=== PATIENT | male | born 1960 | race Caucasian/White ===

== ENCOUNTER 2017-03-20 11:30 | Inpatient (IN) | payer OTHER ==
[2017-03-20 11:51] VITALS: BMI 25.2
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
[2017-03-20] MEDS ORDERED: guaiFENesin/D-METHORPHAN HB 10 ML UNIT-DOSE CUPS PO PRN (16:34)
[2017-03-20] MEDS ORDERED: MAGNESIUM CITRATE 300 ML BOTTLE PO PRN (16:34)
[2017-03-20] MEDS ORDERED: LOPERAMIDE HCL 2 MG CAPSULE PO PRN (16:34)
[2017-03-20] MEDS ORDERED: hydrOXYzine PAMOATE 50 MG CAPSULE (FP) PO PRN (16:34)
[2017-03-20] MEDS ORDERED: MENTHOL/PHENOL 1 EACH UD MM PRN (16:34)
[2017-03-20] MEDS ORDERED: MAGNESIUM HYDROX 2400MG/30ML ORAL SUSPENSION 30 ML CUP PO PRN (16:34)
[2017-03-20] MEDS ORDERED: NICOTINE POLACRILEX 2 MG GUM BC PRN (16:34)
[2017-03-20] MEDS ORDERED: MAG HYDROX/AL HYDROX/SIMETH 30 ML UNIT-DOSE CUP PO PRN (16:34)
[2017-03-20] MEDS ORDERED: P-EPHED 60MG/TRIPROLIDI 2.5MG TABLET PO PRN (16:34)
[2017-03-20] MEDS ORDERED: diphenhydrAMINE HCL 50 MG CAPSULE PO PRN (16:34)
[2017-03-20] MEDS ORDERED: ACETAMINOPHEN 325 MG TABLET (FP) PO PRN (16:34)
[2017-03-20] MEDS ORDERED: IBUPROFEN 400 MG TABLET (FP) PO PRN (16:34)
[2017-03-20] MEDS ORDERED: ALBUTEROL SO4 6.7 GM HFA INHALER IH PRN (16:38)
[2017-03-20] MEDS ORDERED: METHADONE HCL 10 MG TABLET (FOR DETOX USE ONLY) PO ONE ×2 (17:00→23:00)
[2017-03-20] MEDS: diazePAM 5 MG TABLET PO PRN (17:18)
[2017-03-20] MEDS: NICOTINE 21 MG/24 HOURS TOPICAL PATCH TD SCH (17:19)
[2017-03-20 20:06] LABS: URINE APPEARANCE CLEAR; URINE BILIRUBIN NEGATIVE (NEGATIVE); URINE BLOOD NEGATIVE (NEGATIVE); URINE COLOR DKYELLOW; URINE GLUCOSE (UA) NEGATIVE (NEGATIVE); URINE KETONE NEGATIVE (NEGATIVE); URINE LEUK ESTERASE NEGATIVE (NEGATIVE); URINE NITRITE NEGATIVE (NEGATIVE); URINE PROTEIN NEGATIVE (NEGATIVE); URINE UROBILINOGEN NEGATIVE E.U./dl (0.2-1.0)
[2017-03-20 21:49] VITALS: BP 113/77; PULSE 85
[2017-03-20] MEDS ORDERED: THIAMINE HCL 100 MG TABLET (FP) PO SCH (22:00)
[2017-03-21] MEDS: diazePAM 5 MG TABLET PO PRN (05:39)
[2017-03-21 06:31] VITALS: TEMP 97.3
[2017-03-21] MEDS ORDERED: METHADONE HCL 10 MG TABLET (FOR DETOX USE ONLY) PO ONE (10:00)
[2017-03-21] MEDS ORDERED: PRENATAL VITAMINS W/ FOLIC ACID TABLET (FP) PO SCH (10:00)
[2017-03-21] MEDS: NICOTINE 21 MG/24 HOURS TOPICAL PATCH TD SCH (10:56)
--- NOTE | 2017-03-21 11:27 | EKG ---
Test Reason : Blood Pressure : / mmHG Vent. Rate : 075 BPM Atrial Rate : 075 BPM P-R Int : 162 ms QRS Dur : 090 ms QT Int : 396 ms P-R-T Axes : 056 055 043 degrees QTc Int : 442 ms NORMAL SINUS RHYTHM NO PREVIOUS ECGS AVAILABLE Confirmed by JUAN SALINAS MD ([id number]) on 03/21/2017 11:26:44 AM Referred By: Confirmed By:JUAN SALINAS MD
[2017-03-21 11:32] LABS: MCH 30.2 pg (25.7-33.7); MCHC 33.6 g/dl (32.0-35.9); MEAN CELL VOLUME 89.9 fl (80-96); MEAN PLT VOLUME 9.5 fl (7.5-11.1); PLATELET COUNT 241 K/MM3 (134-434); RDW 13.9 % (11.9-15.9); WHITE BLOOD COUNT 6.7 K/mm3 (4.0-10.0)
--- NOTE | 2017-03-21 11:39 | PN ---
BHS COWS - Scale Resting Pulse: 1= [place] 81-100 Sweatin= Chills/Flushing Restless Observation: 1= Difficult to Sit Still Pupil Size: 1= Pupils >than Normal Bone or Joint Aches: 1= Mild Discomfort Runny Nose/ Eye Tearin= Nasal Congestion GI Upset > 30mins: 2= Nausea/Diarrhea Tremor Observation of Outstretched Hands: 2= Slight Tremor Visible Yawning Observation: 1= 1-2x During Session Anxiety or Irritability: 2=Irritable/Anxious Goose Flesh Skin: 3=Piloerection COWS Score: 16 BHS Progress Note (SOAP) Subjective: nausea, sweats, interrupted sleep, anxiety, tremors Objective: 03/21/17 11:38 Vital Signs - 24 hr 03/20/17 03/20/17 03/20/17 11:49 18:46 21:48 Temperature 96.3 F L 97.0 F L 97.8 F Pulse Rate 83 87 85 Respiratory 18 18 18 Rate Blood Pressure 130/87 116/79 113/77 03/21/17 03/21/17 00:30 06:31 Temperature 97.3 F L Pulse Rate Respiratory 20 Rate Blood Pressure Laboratory Tests 03/20/17 03/21/17 19:30 06:00 WBC 6.7 D RBC 4.82 Hgb 14.5 Hct 43.3 MCV 89.9 MCHC 33.6 RDW 13.9 D Plt Count 241 MPV 9.5 Urine Color Dkyellow Urine Appearance Clear Urine pH 6.0 Ur Specific [place] 1.025 Urine Protein Negative Urine Glucose (UA) Negative Urine Ketones Negative Urine Blood Negative Urine Nitrite Negative Urine Bilirubin Negative Urine Urobilinogen Negative Ur Leukocyte Esterase Negative labs still pending Assessment: 03/21/17 11:38 withdrawal sx Plan: cont detox, fluids, encourage ambulation, check labs when available
[2017-03-21 11:44] LABS: ALK PHOS 71 U/L (45-117); ANION GAP 8 (8-16); BILIRUBIN,TOTAL 0.6 mg/dL (0.2-1.0); CALCIUM 9.4 mg/dL (8.5-10.1); CO2 30 mmol/L (21-32); COCKROFT - GAULT 123.99; CREATININE 0.7 mg/dL (0.7-1.3); GLUCOSE,RANDOM 123 mg/dL (74-106); SGOT/AST 30 U/L (15-37); SGPT/ALT 44 U/L (12-78); TOT PROT 7.1 g/dl (6.4-8.2)
[2017-03-21 11:50] LABS: SICKLE CELL SCREEN NEGATIVE (NEGATIVE)
[2017-03-21 12:05] LABS: HIV 1 & 2 AB NEGATIVE; HIV 1 AGp24 NEGATIVE
--- NOTE | 2017-03-21 14:24 | PN ---
BHS Progress Note Note: Patient refusing methadone signing out ama, risks of not completing inpatient detoxification discussed with patient, nurse informed
--- NOTE | 2017-03-21 14:27 | DS ---
[facility] Detox Discharge Summary Admission Date: 03/20/17 Discharge Date: 03/21/17 - History Present History: Alcohol Dependence, Cocaine Dependence, Opioid Dependence Pertinent Past History: wt loss, Hep c, anxiety, depression, insomnia, nicotine dependence - Physical Exam Results Vital Signs: Vital Signs Temperature 97.3 F L 03/21/17 06:31 Pulse Rate 85 03/20/17 21:48 Respiratory Rate 20 03/21/17 00:30 Blood Pressure 113/77 03/20/17 21:48 O2 Sat by Pulse Oximetry (%) Pertinent Admission Physical Exam Findings: withdrawal sx - Treatment Hospital Course: Detox Protocol Followed Patient has Accepted a Rehab Referral to: no - Medication Discharge Medications: Ambulatory Orders Fluoxetine HCl [Prozac -] 40 mg PO DAILY #30 capsule 02/15/16 Albuterol Sulfate Inhaler - [Ventolin HFA Inhaler -] 2 inh IH Q4H PRN 04/23/16 Budesonide/Formeterol Fumarate [SYMBICORT 160/4.5mcg -] 1 inh PO BID 04/23/16 - Diagnosis (1) Opioid dependence with withdrawal Current Visit: Yes Status: Chronic (2) Weight decreased Current Visit: Yes Status: Acute (3) Asthma Current Visit: Yes Status: Chronic Qualifiers: Asthma severity: mild intermittent Asthma complication type: uncomplicated Qualified Code(s): J45.20 - Mild intermittent asthma, uncomplicated (4) Hep C w/o coma, chronic Current Visit: Yes Status: Chronic (5) Nicotine dependence Current Visit: Yes Status: Chronic Qualifiers: Nicotine product type: cigarettes Substance use status: uncomplicated Qualified Code(s): F17.210 - Nicotine dependence, cigarettes, uncomplicated (6) Alcohol dependence Current Visit: Yes Status: Chronic Qualifiers: Substance use status: in withdrawal (7) Cocaine dependence Current Visit: No Status: Acute Qualifiers: Substance use status: uncomplicated Qualified Code(s): F14.20 - Cocaine dependence, uncomplicated (8) Drug-induced mood disorder Current Visit: No Status: Acute (9) Syncope Current Visit: No Status: Resolved - AMA Did Patient Leave Against Medical Advice: Yes
[2017-03-22] MEDS ORDERED: METHADONE HCL 5 MG TABLET (FOR DETOX USE ONLY) PO ONE (10:00)
[2017-03-23] MEDS ORDERED: METHADONE HCL 5 MG TABLET (FOR DETOX USE ONLY) PO ONE (10:00)
[2017-03-24] MEDS ORDERED: METHADONE HCL 10 MG TABLET (FOR DETOX USE ONLY) PO ONE (10:00)
[2017-03-25] MEDS ORDERED: METHADONE HCL 5 MG TABLET (FOR DETOX USE ONLY) PO ONE (06:00)
== END 2017-03-21 15:54 | disposition left against medical advice (07) | DRG 770 ==
LOC: YASAS 11:30 → Y3N 14:49
PROVIDERS: ADMIT Internal Medicine; ATTEND Internal Medicine
PROC: HZ2ZZZZ Detoxification Services for Substance Abuse Treatment (ICD-10-PCS; principal; 2017-03-21)
DX: F11.23 Opioid dependence with withdrawal (principal); F10.230 Alcohol dependence with withdrawal, uncomplicated; F17.210 Nicotine dependence, cigarettes, uncomplicated; F19.24 Other psychoactive substance dependence with psychoactive substance-induced mood disorder; B18.2 Chronic viral hepatitis C; R55 Syncope and collapse; R63.4 Abnormal weight loss; Z68.24 Body mass index [BMI] 24.0-24.9, adult; Z59.0 Homelessness
CPT/HCPCS: 36415; 80053; 81003; 85027; 85660; 86593; 86780; 87389; 93005; 93010

== ENCOUNTER 2020-07-31 14:53 | Inpatient (IN) | payer OTHER ==
--- NOTE | 2020-07-31 15:27 | BHS.RME ---
Substance Use & Tx History - Substance Use History Heroin Substance amount: 14 bags Frequency of use: Daily Substance route: Inhalation (ex: sniffing or snorting), Injection (ex: intravenous or skin popping) Date of Last Use: 07/30/20 Nicotine Substance amount: one half pack Frequency of use: Daily Substance route: Smoking Date of Last Use: 07/31/20 - Last Treatment Date of last treatment: March 20 to 2016, left AMA Where was last treatment: Detox Physical/Psych/Mental Status - Behavior General Behavior: Increased activity (restlessness, agitation) Eye Contact: Normal - Cooperativeness Cooperativeness: Cooperative - Thinking Thought Processes: Tight Thought content: Future oriented - Physical Health Problems Is patient presently having any pain?: Yes (low back pain, acute on chronic) Does patient presently have any injuries (include location): No Does patient currently have a fever: No COWS - Scale Resting Pulse: 1= [place] 81-100 Sweatin= No chills or Flushing Restless Observation: 1= Difficult to Sit Still Pupil Size: 0= Normal to Room Light Bone or Joint Aches: 1= Mild Discomfort Runny Nose/ Eye Tearin= Nasal Congestion GI Upset > 30mins: 1= Stomach Cramp Tremor Observation: 1= Tremor [place], Not Seen Yawning Observation: 0= None Anxiety or Irritability: 1=Feels Anxious/Irritable Goose Flesh Skin: 0=Smooth Skin COWS Score: 7
[2020-07-31 16:24] VITALS: BMI 25.4
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
[2020-07-31] MEDS ORDERED: MAGNESIUM HYDROX 2400MG/30ML ORAL SUSPENSION 30 ML CUP PO PRN (16:51)
[2020-07-31] MEDS ORDERED: MAGNESIUM CITRATE 300 ML BOTTLE PO PRN (16:51)
[2020-07-31] MEDS ORDERED: ONDANSETRON *ODT* 4 MG TABLET SL PRN (16:51)
[2020-07-31] MEDS ORDERED: METHADONE HCL 10 MG TABLET (FOR DETOX USE ONLY) PO ONE (16:51)
[2020-07-31] MEDS ORDERED: BISMUTH SUBSALICYLATE 524 MG/30 ML UD PO PRN (16:51)
[2020-07-31] MEDS ORDERED: MAG HYDROX/AL HYDROX/SIMETH 30 ML UNIT-DOSE CUP PO PRN (16:51)
[2020-07-31] MEDS ORDERED: MENTHOL/PHENOL 1 EACH UD MM PRN (16:51)
[2020-07-31] MEDS ORDERED: ACETAMINOPHEN 325 MG TABLET (FP) PO PRN ×2 (16:51)
[2020-07-31] MEDS ORDERED: cloNIDine HCL 0.1 MG TABLET PO PRN (16:51)
[2020-07-31] MEDS ORDERED: NICOTINE POLACRILEX 2 MG GUM BUC PRN (16:51)
[2020-07-31] MEDS ORDERED: ALBUTEROL SO4 HFA INHALER IH PRN (16:53)
[2020-07-31] MEDS: IBUPROFEN 400 MG TABLET (FP) PO PRN (18:36)
[2020-07-31] MEDS: THIAMINE HCL 100 MG TABLET (FP) PO SCH (22:34)
[2020-07-31] MEDS: MELATONIN 5 MG TABLETS PO SCH (22:34)
[2020-08-01] MEDS: IBUPROFEN 400 MG TABLET (FP) PO PRN ×2 (05:32→17:39)
[2020-08-01] MEDS ORDERED: METHADONE HCL 5 MG TABLET (FOR DETOX USE ONLY) ONE (08:58)
[2020-08-01] MEDS ORDERED: METHADONE HCL 10 MG TABLET (FOR DETOX USE ONLY) ONE (08:58)
[2020-08-01] MEDS ORDERED: METHADONE (DETOX) 20 MG, METHADONE (DETOX) 5 MG PO ONE (10:00)
[2020-08-01] MEDS: PRENATAL VITAMINS W/ FOLIC ACID TABLET (FP) PO SCH (10:05)
[2020-08-01] MEDS: NICOTINE 14 MG/24 HOURS TOPICAL PATCH TD SCH (10:05)
--- NOTE | 2020-08-01 10:13 | PN ---
[facility] COWS - Scale Resting Pulse: 0= [place] 80 or Below Sweatin=Flushed/Facial Moisture Restless Observation: 1= Difficult to Sit Still Pupil Size: 0= Normal to Room Light Bone or Joint Aches: 2= Severe Diffuse Aches Runny Nose/ Eye Tearin= None GI Upset > 30mins: 0= None Tremor Observation of Outstretched Hands: 2= Slight Tremor Visible Yawning Observation: 2= >3x During Session Anxiety or Irritability: 2=Irritable/Anxious Goose Flesh Skin: 0=Smooth Skin COWS Score: 11 [facility] Progress Note (SOAP) Subjective: irritable restless agitation body aches interrupted sleep chills sweats Objective: 08/01/20 10:12 Vital Signs Temperature 97.3 F L 08/01/20 08:40 Pulse Rate 61 08/01/20 08:40 Respiratory Rate 17 08/01/20 08:40 Blood Pressure 117/74 08/01/20 08:40 O2 Sat by Pulse Oximetry (%) 96 08/01/20 06:40 labs pending aaox3 ambulating no acute distress Assessment: 08/01/20 10:12 withdrawals Plan: continue detox increase fluids pending labs
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
[2020-08-01 10:32] LABS: HEMATOCRIT 38.3 % (35.4-49); HEMOGLOBIN 13.1 GM/dL (11.7-16.9); MCH 30.2 pg (25.7-33.7); MCHC 34.1 g/dl (32.0-35.9); MEAN CELL VOLUME 88.5 fl (80-96); PLATELET COUNT 206 K/MM3 (134-434); RBC 4.32 M/mm3 (4.00-5.60); RDW 13.9 % (11.9-15.9); WHITE BLOOD COUNT 6.7 K/mm3 (4.0-10.0)
--- NOTE | 2020-08-01 10:39 | EKG ---
Test Reason : Blood Pressure : / mmHG Vent. Rate : 078 BPM Atrial Rate : 078 BPM P-R Int : 158 ms QRS Dur : 088 ms QT Int : 380 ms P-R-T Axes : 046 024 034 degrees QTc Int : 433 ms NORMAL SINUS RHYTHM NORMAL ECG WHEN COMPARED WITH ECG OF 20-MAR-2017 16:29, NO SIGNIFICANT CHANGE WAS FOUND Confirmed by Alen Hackett MD ([id number]) on 08/01/2020 10:38:44 AM Referred By: Confirmed By:Alen Hackett MD
[2020-08-01 10:43] LABS: ALBUMIN 3.3 g/dl (3.4-5.0); BILIRUBIN,TOTAL 0.6 mg/dL (0.2-1); BLOOD UREA NITROGEN 13.4 mg/dL (7-18); CALCIUM 8.7 mg/dL (8.5-10.1); CREATININE 0.7 mg/dL (0.55-1.3); POTASSIUM 4.2 mmol/L (3.5-5.1); TOT PROT 6.5 g/dl (6.4-8.2)
[2020-08-01] MEDS: METHOCARBAMOL 500 MG TABLET PO PRN (17:40)
[2020-08-01] MEDS: THIAMINE HCL 100 MG TABLET (FP) PO SCH (21:13)
[2020-08-01] MEDS: diazePAM 5 MG TABLET PO PRN (21:13)
[2020-08-01] MEDS: MIRTAZAPINE 15 MG TABLET (FP) PO SCH (21:13)
[2020-08-01] MEDS: MELATONIN 5 MG TABLETS PO SCH (21:14)
[2020-08-01] MEDS: BUDESONIDE/FORMETEROL FUMARATE 160/4.5 mcg INHALER IH SCH (22:44)
[2020-08-02] MEDS: METHOCARBAMOL 500 MG TABLET PO PRN (08:16)
[2020-08-02] MEDS ORDERED: METHADONE HCL 10 MG TABLET (FOR DETOX USE ONLY) PO ONE (10:00)
[2020-08-02] MEDS: NICOTINE 14 MG/24 HOURS TOPICAL PATCH TD SCH (10:14)
[2020-08-02] MEDS: PRENATAL VITAMINS W/ FOLIC ACID TABLET (FP) PO SCH (10:14)
[2020-08-02] MEDS: BUDESONIDE/FORMETEROL FUMARATE 160/4.5 mcg INHALER IH SCH ×2 (10:15→22:21)
--- NOTE | 2020-08-02 10:49 | PN ---
BHS COWS - Scale Resting Pulse: 0= [place] 80 or Below Sweatin= Chills/Flushing Restless Observation: 1= Difficult to Sit Still Pupil Size: 0= Normal to Room Light Bone or Joint Aches: 2= Severe Diffuse Aches Runny Nose/ Eye Tearin= Runny Nose/Eyes GI Upset > 30mins: 1= Stomach Cramp Tremor Observation of Outstretched Hands: 1= Tremor [place], Not Seen Yawning Observation: 2= >3x During Session Anxiety or Irritability: 2=Irritable/Anxious Goose Flesh Skin: 0=Smooth Skin COWS Score: 12 S Progress Note (SOAP) Subjective: sweats body aches low back pain stomach ache constipation Objective: 08/02/20 10:53 Vital Signs Temperature 98.6 F 08/02/20 08:32 Pulse Rate 72 08/02/20 08:32 Respiratory Rate 20 08/02/20 08:32 Blood Pressure 139/92 08/02/20 08:32 O2 Sat by Pulse Oximetry (%) 97 08/02/20 08:32 Laboratory Tests 08/01/20 08/01/20 08/01/20 08:15 08:15 08:15 WBC 6.7 RBC 4.32 Hgb 13.1 Hct 38.3 MCV 88.5 MCH 30.2 MCHC 34.1 RDW 13.9 Plt Count 206 MPV 9.0 Sodium 140 Potassium 4.2 Chloride 103 Carbon Dioxide 32 Anion Gap 5 L BUN 13.4 Creatinine 0.7 Est GFR (CKD-EPI)AfAm 118.88 Est GFR (CKD-EPI)NonAf 102.57 Random Glucose 96 Calcium 8.7 Total Bilirubin 0.6 AST 20 ALT 30 Alkaline Phosphatase 62 Total Protein 6.5 Albumin 3.3 L Syphilis Serology Reactive A* RPR Titer 08/01/20 08:15 WBC RBC Hgb Hct MCV MCH MCHC RDW Plt Count MPV Sodium Potassium Chloride Carbon Dioxide Anion Gap BUN Creatinine Est GFR (CKD-EPI)AfAm Est GFR (CKD-EPI)NonAf Random Glucose Calcium Total Bilirubin AST ALT Alkaline Phosphatase Total Protein Albumin Syphilis Serology RPR Titer Reactive 1:1 H labs noted aaox3 lying in bed no acute distress Assessment: 08/02/20 10:55 withdrawals Plan: continue detox increase fluids roboxin 750mg prn motrin 800mg tid prn lidocaine patch daily
[2020-08-02] MEDS ORDERED: DICYCLOMINE HCL 10 MG CAPSULE PO PRN (11:05)
[2020-08-02] MEDS: LIDOCAINE 5% TOPICAL PATCH TP SCH (11:58)
[2020-08-02] MEDS: IBUPROFEN 400 MG TABLET (FP) PO PRN ×2 (14:52→21:13)
[2020-08-02] MEDS: METHOCARBAMOL 750 MG TABLET PO PRN ×2 (14:56→21:12)
[2020-08-02] MEDS: diazePAM 5 MG TABLET PO PRN (21:11)
[2020-08-02] MEDS: MIRTAZAPINE 15 MG TABLET (FP) PO SCH (21:12)
[2020-08-02] MEDS: THIAMINE HCL 100 MG TABLET (FP) PO SCH (21:13)
[2020-08-02] MEDS: LIDOCAINE PATCH REMOVAL MC SCH (22:21)
[2020-08-02] MEDS: MELATONIN 5 MG TABLETS PO SCH (22:21)
[2020-08-03] MEDS: METHOCARBAMOL 750 MG TABLET PO PRN (08:30)
[2020-08-03] MEDS: IBUPROFEN 400 MG TABLET (FP) PO PRN ×2 (08:31→18:26)
[2020-08-03] MEDS ORDERED: METHADONE HCL 5 MG TABLET (FOR DETOX USE ONLY) ONE (08:53)
[2020-08-03] MEDS ORDERED: METHADONE HCL 10 MG TABLET (FOR DETOX USE ONLY) ONE (08:53)
[2020-08-03] MEDS: NICOTINE 14 MG/24 HOURS TOPICAL PATCH TD SCH (09:56)
[2020-08-03] MEDS: PRENATAL VITAMINS W/ FOLIC ACID TABLET (FP) PO SCH (09:56)
[2020-08-03] MEDS: LIDOCAINE 5% TOPICAL PATCH TP SCH (09:59)
[2020-08-03] MEDS ORDERED: METHADONE (DETOX) 10 MG, METHADONE (DETOX) 5 MG PO ONE (10:00)
[2020-08-03] MEDS: BUDESONIDE/FORMETEROL FUMARATE 160/4.5 mcg INHALER IH SCH ×2 (11:03→21:52)
--- NOTE | 2020-08-03 13:32 | PN ---
BHS COWS - Scale Resting Pulse: 0= [place] 80 or Below Sweatin= No chills or Flushing Restless Observation: 1= Difficult to Sit Still Pupil Size: 0= Normal to Room Light Bone or Joint Aches: 2= Severe Diffuse Aches Runny Nose/ Eye Tearin= None GI Upset > 30mins: 0= None Tremor Observation of Outstretched Hands: 1= Tremor [place], Not Seen Yawning Observation: 0= None Anxiety or Irritability: 2=Irritable/Anxious Goose Flesh Skin: 0=Smooth Skin COWS Score: 6 [facility] Progress Note (SOAP) Subjective: low back pain sweats agitation Objective: 08/03/20 13:31 Vital Signs Temperature 97.1 F L 08/03/20 08:34 Pulse Rate 77 08/03/20 08:34 Respiratory Rate 18 08/03/20 08:34 Blood Pressure 147/82 08/03/20 08:34 O2 Sat by Pulse Oximetry (%) 99 08/03/20 08:34 Laboratory Tests 07/31/20 08/01/20 08/01/20 17:50 08:15 08:15 WBC 6.7 RBC 4.32 Hgb 13.1 Hct 38.3 MCV 88.5 MCH 30.2 MCHC 34.1 RDW 13.9 Plt Count 206 MPV 9.0 Sodium Potassium Chloride Carbon Dioxide Anion Gap BUN Creatinine Est GFR (CKD-EPI)AfAm Est GFR (CKD-EPI)NonAf Random Glucose Calcium Total Bilirubin AST ALT Alkaline Phosphatase Total Protein Albumin Syphilis Serology Reactive A* RPR Titer COVID-19 (CINDA) Not detected 08/01/20 08/01/20 08:15 08:15 WBC RBC Hgb Hct MCV MCH MCHC RDW Plt Count MPV Sodium 140 Potassium 4.2 Chloride 103 Carbon Dioxide 32 Anion Gap 5 L BUN 13.4 Creatinine 0.7 Est GFR (CKD-EPI)AfAm 118.88 Est GFR (CKD-EPI)NonAf 102.57 Random Glucose 96 Calcium 8.7 Total Bilirubin 0.6 AST 20 ALT 30 Alkaline Phosphatase 62 Total Protein 6.5 Albumin 3.3 L Syphilis Serology RPR Titer Reactive 1:1 H COVID-19 (CINDA) aaox3 ambulating no acute distress Assessment: 08/03/20 13:32 withdrawals Plan: continue detox pt is aware to ask for motrin/roboxin prn
[2020-08-03] MEDS: MIRTAZAPINE 15 MG TABLET (FP) PO SCH (21:50)
[2020-08-03] MEDS: MELATONIN 5 MG TABLETS PO SCH (21:51)
[2020-08-03] MEDS: THIAMINE HCL 100 MG TABLET (FP) PO SCH (21:51)
[2020-08-03] MEDS: LIDOCAINE PATCH REMOVAL MC SCH (23:07)
[2020-08-04] MEDS: IBUPROFEN 400 MG TABLET (FP) PO PRN ×3 (01:01→17:32)
[2020-08-04] MEDS ORDERED: METHADONE HCL 10 MG TABLET (FOR DETOX USE ONLY) PO ONE (10:00)
[2020-08-04] MEDS: PRENATAL VITAMINS W/ FOLIC ACID TABLET (FP) PO SCH (10:23)
[2020-08-04] MEDS: NICOTINE 14 MG/24 HOURS TOPICAL PATCH TD SCH (10:24)
[2020-08-04] MEDS: BUDESONIDE/FORMETEROL FUMARATE 160/4.5 mcg INHALER IH SCH ×2 (10:25→21:36)
[2020-08-04] MEDS: METHOCARBAMOL 750 MG TABLET PO PRN ×2 (10:26→17:33)
--- NOTE | 2020-08-04 11:03 | PN ---
BHS COWS - Scale Resting Pulse: 0= [place] 80 or Below Sweatin= No chills or Flushing Restless Observation: 0= Sits Still Pupil Size: 0= Normal to Room Light Bone or Joint Aches: 1= Mild Discomfort Runny Nose/ Eye Tearin= None GI Upset > 30mins: 0= None Tremor Observation of Outstretched Hands: 0= None Yawning Observation: 1= 1-2x During Session Anxiety or Irritability: 1=Feels Anxious/Irritable Goose Flesh Skin: 0=Smooth Skin COWS Score: 3 BHS Progress Note (SOAP) Subjective: lower back is feeling better little sweats Objective: 08/04/20 11:01 Vital Signs Temperature 98.1 F 08/04/20 09:21 Pulse Rate 78 08/04/20 09:21 Respiratory Rate 16 08/04/20 09:21 Blood Pressure 107/59 L 08/04/20 09:21 O2 Sat by Pulse Oximetry (%) 96 08/04/20 09:21 Laboratory Tests 07/31/20 08/01/20 08/01/20 17:50 08:15 08:15 WBC 6.7 RBC 4.32 Hgb 13.1 Hct 38.3 MCV 88.5 MCH 30.2 MCHC 34.1 RDW 13.9 Plt Count 206 MPV 9.0 Sodium Potassium Chloride Carbon Dioxide Anion Gap BUN Creatinine Est GFR (CKD-EPI)AfAm Est GFR (CKD-EPI)NonAf Random Glucose Calcium Total Bilirubin AST ALT Alkaline Phosphatase Total Protein Albumin Syphilis Serology Reactive A* RPR Titer COVID-19 (CINDA) Not detected 08/01/20 08/01/20 08:15 08:15 WBC RBC Hgb Hct MCV MCH MCHC RDW Plt Count MPV Sodium 140 Potassium 4.2 Chloride 103 Carbon Dioxide 32 Anion Gap 5 L BUN 13.4 Creatinine 0.7 Est GFR (CKD-EPI)AfAm 118.88 Est GFR (CKD-EPI)NonAf 102.57 Random Glucose 96 Calcium 8.7 Total Bilirubin 0.6 AST 20 ALT 30 Alkaline Phosphatase 62 Total Protein 6.5 Albumin 3.3 L Syphilis Serology RPR Titer Reactive 1:1 H COVID-19 (CINDA) aaox3 ambulating no acute distress Assessment: 08/04/20 11:02 withdrawals Plan: continue detox 2 lidocaine patch ordered as per pt request; pt states it is helping a lot with his back pain d/c in am
[2020-08-04] MEDS: LIDOCAINE 5% TOPICAL PATCH TP SCH ×2 (13:55→15:32)
[2020-08-04] MEDS: MIRTAZAPINE 15 MG TABLET (FP) PO SCH (21:34)
[2020-08-04] MEDS: THIAMINE HCL 100 MG TABLET (FP) PO SCH (21:34)
[2020-08-04] MEDS: LIDOCAINE PATCH REMOVAL MC SCH (21:36)
[2020-08-04] MEDS: MELATONIN 5 MG TABLETS PO SCH (21:36)
[2020-08-05] MEDS: METHOCARBAMOL 750 MG TABLET PO PRN ×2 (02:28→08:35)
[2020-08-05] MEDS: IBUPROFEN 400 MG TABLET (FP) PO PRN (02:29)
[2020-08-05] MEDS ORDERED: METHADONE HCL 5 MG TABLET (FOR DETOX USE ONLY) PO ONE (06:00)
[2020-08-05 10:01] VITALS: BP 133/77; PULSE 78; TEMP 96.9
--- NOTE | 2020-08-05 10:16 | DS ---
[facility] Detox Discharge Summary Admission Date: 07/31/20 Discharge Date: 08/05/20 - History Present History: Opioid Dependence Additional Comments: Patient was seen and examined at bedside. Alert and oriented x 3, in no acute respiratory distress. Full ROM, ambulatory in the unit without any assistance. Skin warm to touch without any lesions. Detox protocol completed, patient stable for discharge. Pertinent Past History: History of Asthma, Hep C, seizures, Opioid and nicotine use disorder. - Physical Exam Results Vital Signs: Vital Signs Temperature 96.9 F L 08/05/20 09:45 Pulse Rate 78 08/05/20 09:45 Respiratory Rate 20 08/05/20 09:45 Blood Pressure 133/77 08/05/20 09:45 O2 Sat by Pulse Oximetry (%) 99 08/05/20 09:45 Vital Signs 08/05/20 08/05/20 05:03 09:45 Temperature 97.3 F L 96.9 F L Pulse Rate 63 78 Respiratory 20 20 Rate Blood Pressure 155/84 133/77 O2 Sat by Pulse 97 99 Oximetry (%) Laboratory Last Values WBC 6.7 K/mm3 (4.0-10.0) 08/01/20 08:15 RBC 4.32 M/mm3 (4.00-5.60) 08/01/20 08:15 Hgb 13.1 GM/dL (11.7-16.9) 08/01/20 08:15 Hct 38.3 % (35.4-49) 08/01/20 08:15 MCV 88.5 fl (80-96) 08/01/20 08:15 MCH 30.2 pg (25.7-33.7) 08/01/20 08:15 MCHC 34.1 g/dl (32.0-35.9) 08/01/20 08:15 RDW 13.9 % (11.9-15.9) 08/01/20 08:15 Plt Count 206 K/MM3 (134-434) 08/01/20 08:15 MPV 9.0 fl (7.5-11.1) 08/01/20 08:15 Sodium 140 mmol/L (136-145) 08/01/20 08:15 Potassium 4.2 mmol/L (3.5-5.1) 08/01/20 08:15 Chloride 103 mmol/L (98-107) 08/01/20 08:15 Carbon Dioxide 32 mmol/L (21-32) 08/01/20 08:15 Anion Gap 5 MMOL/L (8-16) L 08/01/20 08:15 BUN 13.4 mg/dL (7-18) 08/01/20 08:15 Creatinine 0.7 mg/dL (0.55-1.3) 08/01/20 08:15 Est GFR (CKD-EPI)AfAm 118.88 08/01/20 08:15 Est GFR (CKD-EPI)NonAf 102.57 08/01/20 08:15 Random Glucose 96 mg/dL (74-106) 08/01/20 08:15 Calcium 8.7 mg/dL (8.5-10.1) 08/01/20 08:15 Total Bilirubin 0.6 mg/dL (0.2-1) 08/01/20 08:15 AST 20 U/L (15-37) 08/01/20 08:15 ALT 30 U/L (13-61) 08/01/20 08:15 Alkaline Phosphatase 62 U/L (45-117) 08/01/20 08:15 Total Protein 6.5 g/dl (6.4-8.2) 08/01/20 08:15 Albumin 3.3 g/dl (3.4-5.0) L 08/01/20 08:15 Syphilis Serology Reactive (NONREACTIVE) A* 08/01/20 08:15 RPR Titer Reactive 1:1 (NONREACTIVE) H 08/01/20 08:15 COVID-19 (CINDA) Not detected (Not Detected) 07/31/20 17:50 Labs noted. Pertinent Admission Physical Exam Findings: Withdrawal symptoms. - Treatment Hospital Course: Detox Protocol Followed, Detoxed Safely, Responded well, Discharged Condition Good - Medication Discharge Medications: Ambulatory Orders Fluoxetine HCl [Prozac -] 40 mg PO DAILY #30 capsule 02/15/16 Albuterol Sulfate Inhaler - [Ventolin HFA Inhaler -] 2 inh IH Q4H PRN 04/23/16 Budesonide/Formeterol Fumarate [SYMBICORT 160/4.5mcg -] 1 inh PO BID 04/23/16 - Diagnosis (1) Opioid dependence with withdrawal Current Visit: Yes Status: Acute (2) Asthma Current Visit: Yes Status: Chronic Qualifiers: Asthma severity: mild intermittent Asthma complication type: uncomplicated (3) Hepatitis C Current Visit: Yes Status: Chronic (4) Nicotine dependence Current Visit: Yes Status: Chronic Qualifiers: Nicotine product type: cigarettes Substance use status: uncomplicated Qualified Code(s): F17.210 - Nicotine dependence, cigarettes, uncomplicated (5) Seizures Current Visit: Yes Status: Chronic - AMA Did Patient Leave Against Medical Advice: No
[2020-08-05] MEDS: NICOTINE 14 MG/24 HOURS TOPICAL PATCH TD SCH (11:14)
[2020-08-05] MEDS: BUDESONIDE/FORMETEROL FUMARATE 160/4.5 mcg INHALER IH SCH (11:14)
[2020-08-05] MEDS: PRENATAL VITAMINS W/ FOLIC ACID TABLET (FP) PO SCH (11:14)
[2020-08-05] MEDS: LIDOCAINE 5% TOPICAL PATCH TP SCH (11:14)
== END 2020-08-05 11:10 | disposition other institution (70) | DRG 773 ==
LOC: YASAS 14:53 → Y6N 17:42
PROVIDERS: ADMIT Allergy & Immunology; ATTEND Allergy & Immunology
PROC: HZ2ZZZZ Detoxification Services for Substance Abuse Treatment (ICD-10-PCS; principal; 2020-07-31)
DX: F11.23 Opioid dependence with withdrawal (principal); F17.210 Nicotine dependence, cigarettes, uncomplicated; F19.282 Other psychoactive substance dependence with psychoactive substance-induced sleep disorder; F19.24 Other psychoactive substance dependence with psychoactive substance-induced mood disorder; F32.9 Major depressive disorder, single episode, unspecified; B18.2 Chronic viral hepatitis C; G40.909 Epilepsy, unspecified, not intractable, without status epilepticus; J45.20 Mild intermittent asthma, uncomplicated; Z86.11 Personal history of tuberculosis; Z87.81 Personal history of (healed) traumatic fracture; Z98.890 Other specified postprocedural states; Z91.013 Allergy to seafood; Z56.0 Unemployment, unspecified; Z59.0 Homelessness
CPT/HCPCS: 36415; 71046-TC-FY; 80053; 85027; 86593; 86780; 93005; 93010; J0735; U0003

== ENCOUNTER 2020-08-05 11:12 | Inpatient (IN) | payer OTHER ==
--- NOTE | 2020-08-05 12:05 | HP ---
[facility] Rehab Assess/Revision - Admission History Admitted to Rehab from: [facility] Date of Admission to Rehab: 08/05/2020 - Vital signs Vital Signs: Vital Signs Period Temp Pulse Resp BP Sys/Baker Pulse Ox Last 24 Hr 98.2 F 76 16 135/82 Vital Signs 08/05/20 11:18 Temperature 98.2 F Pulse Rate 76 Respiratory 16 Rate Blood Pressure 135/82 - Findings Detox History & Physical reviewed: Yes Concur with findings: Yes Comments/Additional Findings: none Inpatient Rehab Admission - Initial Determination Are CD services needed?: Yes Free of communicable disease: Yes Not in need of hospitalization: Yes - Rehab Admission Criteria Previous failed treatment: Yes Poor recovery environment: Yes Comorbidities: Yes Lacks judgement: Yes Patient is meeting Inpatient Rehab admission criteria:: Yes
[2020-08-05] MEDS ORDERED: LOPERAMIDE HCL 2 MG CAPSULE PO PRN (12:38)
[2020-08-05] MEDS ORDERED: MENTHOL/PHENOL 1 EACH UD MM PRN (12:38)
[2020-08-05] MEDS ORDERED: MAGNESIUM CITRATE 300 ML BOTTLE PO PRN (12:38)
[2020-08-05] MEDS ORDERED: hydrOXYzine PAMOATE 25 MG CAPSULE (FP) PO PRN (12:38)
[2020-08-05] MEDS ORDERED: MAGNESIUM HYDROX 2400MG/30ML ORAL SUSPENSION 30 ML CUP PO PRN (12:38)
[2020-08-05] MEDS ORDERED: NICOTINE POLACRILEX 2 MG GUM BUC PRN (12:38)
[2020-08-05] MEDS ORDERED: MAG HYDROX/AL HYDROX/SIMETH 30 ML UNIT-DOSE CUP PO PRN (12:38)
[2020-08-05] MEDS ORDERED: guaiFENesin 200 MG/10 ML 10 ML UNIT-DOSE CUPS PO PRN (12:38)
[2020-08-05] MEDS ORDERED: P-EPHED 60MG/TRIPROLIDI 2.5MG TABLET PO PRN (12:38)
[2020-08-05] MEDS ORDERED: ACETAMINOPHEN 325 MG TABLET (FP) PO PRN (12:38)
[2020-08-05] MEDS ORDERED: ALBUTEROL SO4 HFA INHALER IH PRN (12:41)
--- NOTE | 2020-08-05 14:01 | HP ---
[facility] Rehab Assess/Revision - Admission History Admitted to Rehab from: [facility] Date of Admission to Rehab: 08/05/2020 - Vital signs Vital Signs: Vital Signs Period Temp Pulse Resp BP Sys/Baker Pulse Ox Last 24 Hr 98.2 F 76 16 135/82 97 - Findings Detox History & Physical reviewed: Yes Concur with findings: Yes Inpatient Rehab Admission - Rehab Decision to Admit Inpatient rehab admission?: Yes - Initial Determination Are CD services needed?: Yes Free of communicable disease: Yes Not in need of hospitalization: Yes - Rehab Admission Criteria Previous failed treatment: Yes Poor recovery environment: Yes Comorbidities: Yes Lacks judgement: Yes Patient is meeting Inpatient Rehab admission criteria:: Yes
[2020-08-05] MEDS: IBUPROFEN 400 MG TABLET (FP) PO PRN ×2 (14:51→23:52)
[2020-08-05] MEDS: MELATONIN 5 MG TABLETS PO SCH (21:59)
[2020-08-05] MEDS: LIDOCAINE PATCH REMOVAL MC SCH (22:00)
[2020-08-05] MEDS: THIAMINE HCL 100 MG TABLET (FP) PO SCH (22:00)
[2020-08-05] MEDS: BUDESONIDE/FORMETEROL FUMARATE 160/4.5 mcg INHALER IH SCH (22:00)
[2020-08-06] MEDS: IBUPROFEN 400 MG TABLET (FP) PO PRN ×2 (07:59→17:46)
[2020-08-06] MEDS: LIDOCAINE 5% TOPICAL PATCH TP SCH (09:51)
[2020-08-06] MEDS: PRENATAL VITAMINS W/ FOLIC ACID TABLET (FP) PO SCH (09:51)
[2020-08-06] MEDS: BUDESONIDE/FORMETEROL FUMARATE 160/4.5 mcg INHALER IH SCH ×2 (09:51→21:05)
[2020-08-06] MEDS: NICOTINE 14 MG/24 HOURS TOPICAL PATCH TD SCH (10:04)
[2020-08-06] MEDS ORDERED: ALBUTEROL SO4 HFA INHALER IH PRN (10:48)
[2020-08-06] MEDS ORDERED: FLUoxetine HCL 20 MG CAPSULE PO SCH (11:00)
[2020-08-06] MEDS: MIRTAZAPINE 15 MG TABLET (FP) PO SCH (21:04)
[2020-08-06] MEDS: THIAMINE HCL 100 MG TABLET (FP) PO SCH (21:04)
[2020-08-06] MEDS: LIDOCAINE PATCH REMOVAL MC SCH (21:04)
[2020-08-06] MEDS: MELATONIN 5 MG TABLETS PO SCH (21:04)
[2020-08-06] MEDS ORDERED: MIRTAZAPINE 15 MG TABLET (FP) PO SCH (22:00)
[2020-08-06] MEDS ORDERED: BUDESONIDE/FORMETEROL FUMARATE 160/4.5 mcg INHALER IH SCH (22:00)
[2020-08-07] MEDS: IBUPROFEN 400 MG TABLET (FP) PO PRN ×3 (04:24→19:40)
[2020-08-07] MEDS: PRENATAL VITAMINS W/ FOLIC ACID TABLET (FP) PO SCH (09:59)
[2020-08-07] MEDS: LIDOCAINE 5% TOPICAL PATCH TP SCH (09:59)
[2020-08-07] MEDS: NICOTINE 14 MG/24 HOURS TOPICAL PATCH TD SCH (10:00)
[2020-08-07] MEDS: BUDESONIDE/FORMETEROL FUMARATE 160/4.5 mcg INHALER IH SCH ×2 (10:00→21:43)
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
[2020-08-07] MEDS: FLUoxetine HCL 20 MG CAPSULE PO SCH (12:03)
[2020-08-07] MEDS: MIRTAZAPINE 15 MG TABLET (FP) PO SCH (21:42)
[2020-08-07] MEDS: THIAMINE HCL 100 MG TABLET (FP) PO SCH (21:42)
[2020-08-07] MEDS: LIDOCAINE PATCH REMOVAL MC SCH (21:43)
[2020-08-07] MEDS: MELATONIN 5 MG TABLETS PO SCH (21:43)
[2020-08-08] MEDS: IBUPROFEN 400 MG TABLET (FP) PO PRN (05:58)
[2020-08-08 06:48] VITALS: BP 133/98; PULSE 75; TEMP 97.8
[2020-08-08] MEDS: LIDOCAINE 5% TOPICAL PATCH TP SCH (10:03)
[2020-08-08] MEDS: PRENATAL VITAMINS W/ FOLIC ACID TABLET (FP) PO SCH (10:03)
[2020-08-08] MEDS: NICOTINE 14 MG/24 HOURS TOPICAL PATCH TD SCH (10:04)
[2020-08-08] MEDS: BUDESONIDE/FORMETEROL FUMARATE 160/4.5 mcg INHALER IH SCH (10:04)
[2020-08-08] MEDS: FLUoxetine HCL 20 MG CAPSULE PO SCH (10:04)
--- NOTE | 2020-08-08 14:18 | DS ---
[facility] Rehab Discharge Summary - [facility] Rehab Discharge Summary Admission Date: 08/05/20 Discharge Date: 08/08/20 - History Present History: Cocaine dependence, Opioid dependence Pertinent Past History: 59 years old male with 27 years of heroin dependence. His last admission was for the period 03/20/2017 - 03/21/2017 and he had left against medical advice. His last detox was at [facility]. He reports that he uses 14 bags of heroin intravenous daily. He reports medical history of asthma, seizures, Hep. C, psych. history of depression and denies suicide attempt / suicidal ideation at this time. He is unemployed, homeless and denies any legal issues. He reports blackouts and overdose. Last O/D was 2 years ago. - Discharge Physical Exam Vital Signs: Vital Signs Temperature 97.8 F 08/08/20 05:56 Pulse Rate 75 08/08/20 05:56 Respiratory Rate 18 08/08/20 05:56 Blood Pressure 133/98 08/08/20 05:56 O2 Sat by Pulse Oximetry (%) 98 08/08/20 05:56 Pertinent Admission Physical Exam Findings: Physical General Appearance: No apparent distress HEENTM: EOMI, normocephalic Respiratory: No Respiratory Distress Neck: supple Abdominal: +Bowel Sounds Musculoskeletal: Full weight bearing, steady gait, full ROM Neurological:CN 2-12 intact - Treatment Discharge Condition: Discharge condition good (Medically stable for discharge. Patient did NOT accept outpatient referral.Mr. Artis stated, "That's my problem, I'll take care of it.") Hospital Course: patient had no medical issues while in rehab. - Medication Discharge Medications: Ambulatory Orders Albuterol Sulfate Inhaler - [Ventolin HFA Inhaler -] 2 inh IH Q4H PRN 04/23/16 Budesonide/Formeterol Fumarate [SYMBICORT 160/4.5mcg -] 2 inh PO BID 04/23/16 Fluoxetine HCl [Prozac -] 20 mg PO DAILY 08/05/20 Mirtazapine [Remeron -] 15 mg PO HS 08/05/20 - Medication-Assisted Treatment (MAT) Medication-Assisted Treatment (MAT): No - Discharge Instructions Diet, activity, other medical instructions: Diet: as tolerated Activity: as tolerated Other medical instructions: Please attend AA or NA groups upon discharge. - Diagnosis (1) Opioid dependence Current Visit: Yes Status: Chronic (2) Cocaine dependence Current Visit: No Status: Chronic Qualifiers: Substance use status: uncomplicated Qualified Code(s): F14.20 - Cocaine dependence, uncomplicated - Follow-up Referral Minutes to complete discharge: 15 - AMA Did Patient Leave Against Medical Advice: No Additional Comments: Patient did not accept outpatient referral, he stated "That's my problem, I'll take care of it."
== END 2020-08-08 15:10 | disposition home or self-care (01) | DRG 772 ==
LOC: YASAS 11:12 → Y3W 11:13
PROVIDERS: ADMIT Allergy & Immunology; ATTEND Allergy & Immunology
PROC: HZ42ZZZ Group Counseling for Substance Abuse Treatment, Cognitive-Behavioral (ICD-10-PCS; principal; 2020-08-05)
DX: F10.20 Alcohol dependence, uncomplicated (principal); F14.20 Cocaine dependence, uncomplicated; F17.210 Nicotine dependence, cigarettes, uncomplicated; F19.280 Other psychoactive substance dependence with psychoactive substance-induced anxiety disorder; F19.282 Other psychoactive substance dependence with psychoactive substance-induced sleep disorder; F32.9 Major depressive disorder, single episode, unspecified; J45.20 Mild intermittent asthma, uncomplicated; B18.2 Chronic viral hepatitis C; R76.11 Nonspecific reaction to tuberculin skin test without active tuberculosis; Z91.013 Allergy to seafood; Z56.0 Unemployment, unspecified; Z59.0 Homelessness

== ENCOUNTER 2020-12-07 13:36 | Inpatient (IN) | payer OTHER ==
[2020-12-07 15:54] VITALS: BMI 24.6
[2020-12-07] MEDS ORDERED: NICOTINE POLACRILEX 2 MG GUM BUC PRN (15:58)
[2020-12-07] MEDS ORDERED: MAGNESIUM HYDROX 2400MG/30ML ORAL SUSPENSION 30 ML CUP PO PRN (15:58)
[2020-12-07] MEDS ORDERED: ONDANSETRON *ODT* 4 MG TABLET SL PRN (15:58)
[2020-12-07] MEDS ORDERED: METHOCARBAMOL 500 MG TABLET PO PRN (15:58)
[2020-12-07] MEDS ORDERED: MENTHOL/PHENOL 1 EACH UD MM PRN (15:58)
[2020-12-07] MEDS ORDERED: cloNIDine HCL 0.1 MG TABLET PO PRN (15:58)
[2020-12-07] MEDS ORDERED: ACETAMINOPHEN 325 MG TABLET (FP) PO PRN ×2 (15:58)
[2020-12-07] MEDS ORDERED: MAGNESIUM CITRATE 300 ML BOTTLE PO PRN (15:58)
[2020-12-07] MEDS ORDERED: METHADONE HCL 10 MG TABLET (FOR DETOX USE ONLY) PO ONE (15:58)
[2020-12-07] MEDS ORDERED: MAG HYDROX/AL HYDROX/SIMETH 30 ML UNIT-DOSE CUP PO PRN (15:58)
[2020-12-07] MEDS ORDERED: IBUPROFEN 400 MG TABLET (FP) PO PRN (15:58)
[2020-12-07] MEDS ORDERED: BISMUTH SUBSALICYLATE 524 MG/30 ML UD PO PRN (15:58)
[2020-12-07 17:48] LABS: HEMATOCRIT 35.2 % (35.4-49); HEMOGLOBIN 11.7 GM/dL (11.7-16.9); MCHC 33.3 g/dl (32.0-35.9); MEAN CELL VOLUME 87.1 fl (80-96); MEAN PLT VOLUME 8.6 fl (7.5-11.1); PLATELET COUNT 312 K/MM3 (134-434); RBC 4.04 M/mm3 (4.00-5.60); RDW 15.9 % (11.9-15.9)
[2020-12-07] MEDS: BACITRACIN 0.9 GM PACKET TP SCH (17:54)
[2020-12-07 17:55] LABS: POTASSIUM 4.1 mmol/L (3.5-5.1)
[2020-12-07] MEDS: hydrOXYzine PAMOATE 25 MG CAPSULE (FP) PO SCH ×2 (17:56→22:22)
[2020-12-07 17:57] LABS: ALBUMIN 3.8 g/dl (3.4-5.0); BLOOD UREA NITROGEN 11.8 mg/dL (7-18); CALCIUM 9.2 mg/dL (8.5-10.1)
[2020-12-07 18:00] LABS: CREATININE 0.9 mg/dL (0.55-1.3)
[2020-12-07 18:02] LABS: BILIRUBIN,TOTAL 0.6 mg/dL (0.2-1); TOT PROT 7.3 g/dl (6.4-8.2)
[2020-12-07] MEDS: MELATONIN 5 MG TABLETS PO SCH (22:22)
[2020-12-07] MEDS: THIAMINE HCL 100 MG TABLET (FP) PO SCH (22:22)
[2020-12-08] MEDS: hydrOXYzine PAMOATE 25 MG CAPSULE (FP) PO SCH ×5 (07:20→22:17)
[2020-12-08] MEDS ORDERED: METHADONE HCL 10 MG TABLET (FOR DETOX USE ONLY) ONE (08:55)
[2020-12-08] MEDS ORDERED: METHADONE HCL 5 MG TABLET (FOR DETOX USE ONLY) ONE (08:55)
[2020-12-08] MEDS: BACITRACIN 0.9 GM PACKET TP SCH (09:22)
[2020-12-08] MEDS: PRENATAL VITAMINS W/ FOLIC ACID TABLET (FP) PO SCH (09:22)
[2020-12-08] MEDS: NICOTINE 21 MG/24 HOURS TOPICAL PATCH TD SCH (09:23)
[2020-12-08] MEDS ORDERED: METHADONE (DETOX) 20 MG, METHADONE (DETOX) 5 MG PO ONE (10:00)
[2020-12-08] MEDS ORDERED: LORazepam 1 MG TABLET PO PRN (14:03)
[2020-12-08] MEDS: LORazepam 2 MG TABLET PO SCH ×2 (17:15→22:17)
[2020-12-08] MEDS: MELATONIN 5 MG TABLETS PO SCH (22:17)
[2020-12-08] MEDS: MIRTAZAPINE 15 MG TABLET (FP) PO SCH (22:17)
[2020-12-08] MEDS: THIAMINE HCL 100 MG TABLET (FP) PO SCH (22:18)
[2020-12-09] MEDS: hydrOXYzine PAMOATE 25 MG CAPSULE (FP) PO SCH ×5 (06:18→21:59)
[2020-12-09] MEDS: LORazepam 2 MG TABLET PO SCH ×4 (06:18→22:00)
[2020-12-09] MEDS ORDERED: METHADONE HCL 10 MG TABLET (FOR DETOX USE ONLY) PO ONE (10:00)
[2020-12-09] MEDS: PRENATAL VITAMINS W/ FOLIC ACID TABLET (FP) PO SCH (10:17)
[2020-12-09] MEDS: FLUoxetine HCL 20 MG CAPSULE PO SCH (10:18)
[2020-12-09] MEDS: NICOTINE 21 MG/24 HOURS TOPICAL PATCH TD SCH (10:19)
[2020-12-09] MEDS: BACITRACIN 0.9 GM PACKET TP SCH (10:19)
[2020-12-09] MEDS ORDERED: MASKS NR ONE (11:21)
[2020-12-09 11:28] LABS: POTASSIUM 4.5 mmol/L (3.5-5.1)
[2020-12-09 11:30] LABS: HEMATOCRIT 34.1 % (35.4-49); HEMOGLOBIN 11.3 GM/dL (11.7-16.9); MCHC 33.2 g/dl (32.0-35.9); MEAN CELL VOLUME 87.4 fl (80-96); PLATELET COUNT 292 K/MM3 (134-434); RDW 16.4 % (11.9-15.9); WHITE BLOOD COUNT 5.5 K/mm3 (4.0-10.0)
[2020-12-09 11:31] LABS: CALCIUM 8.8 mg/dL (8.5-10.1)
[2020-12-09 11:32] LABS: ALBUMIN 2.9 g/dl (3.4-5.0)
[2020-12-09 11:35] LABS: CREATININE 0.8 mg/dL (0.55-1.3)
[2020-12-09 11:36] LABS: BILIRUBIN,TOTAL 0.7 mg/dL (0.2-1); TOT PROT 5.9 g/dl (6.4-8.2)
[2020-12-09] MEDS: MIRTAZAPINE 15 MG TABLET (FP) PO SCH (21:59)
[2020-12-09] MEDS: MELATONIN 5 MG TABLETS PO SCH (21:59)
[2020-12-09] MEDS: THIAMINE HCL 100 MG TABLET (FP) PO SCH (21:59)
[2020-12-10] MEDS: LORazepam 1 MG TABLET PO SCH ×4 (05:37→22:00)
[2020-12-10] MEDS: hydrOXYzine PAMOATE 25 MG CAPSULE (FP) PO SCH ×5 (05:37→22:01)
[2020-12-10] MEDS ORDERED: METHADONE HCL 5 MG TABLET (FOR DETOX USE ONLY) ONE (08:37)
[2020-12-10] MEDS ORDERED: METHADONE HCL 10 MG TABLET (FOR DETOX USE ONLY) ONE (08:37)
[2020-12-10] MEDS ORDERED: METHADONE (DETOX) 10 MG, METHADONE (DETOX) 5 MG PO ONE (10:00)
[2020-12-10] MEDS: FLUoxetine HCL 20 MG CAPSULE PO SCH (10:15)
[2020-12-10] MEDS: PRENATAL VITAMINS W/ FOLIC ACID TABLET (FP) PO SCH (10:15)
[2020-12-10] MEDS: BACITRACIN 0.9 GM PACKET TP SCH (10:15)
[2020-12-10] MEDS: NICOTINE 21 MG/24 HOURS TOPICAL PATCH TD SCH (10:16)
[2020-12-10] MEDS ORDERED: FLU VACCINE (FLULAVAL) PF 60 MCG/0.5 ML SYRINGE 2020-2021 IM ONE (12:00)
[2020-12-10] MEDS: amLODIPine BESYLATE 5 MG TABLET (FP) PO SCH (18:47)
[2020-12-10] MEDS: MELATONIN 5 MG TABLETS PO SCH (22:00)
[2020-12-10] MEDS: THIAMINE HCL 100 MG TABLET (FP) PO SCH (22:00)
[2020-12-10] MEDS: MIRTAZAPINE 15 MG TABLET (FP) PO SCH (22:00)
[2020-12-11] MEDS ORDERED: LORazepam 0.5 MG TABLET PO PRN
[2020-12-11] MEDS: LORazepam 0.5 MG TABLET PO SCH ×4 (05:57→22:00)
[2020-12-11] MEDS: hydrOXYzine PAMOATE 25 MG CAPSULE (FP) PO SCH ×2 (05:57→10:04)
[2020-12-11] MEDS ORDERED: METHADONE HCL 10 MG TABLET (FOR DETOX USE ONLY) PO ONE (10:00)
[2020-12-11] MEDS: amLODIPine BESYLATE 5 MG TABLET (FP) PO SCH (10:04)
[2020-12-11] MEDS: BACITRACIN 0.9 GM PACKET TP SCH (10:04)
[2020-12-11] MEDS: NICOTINE 21 MG/24 HOURS TOPICAL PATCH TD SCH (10:06)
[2020-12-11] MEDS: FLUoxetine HCL 20 MG CAPSULE PO SCH (10:06)
[2020-12-11] MEDS: PRENATAL VITAMINS W/ FOLIC ACID TABLET (FP) PO SCH (10:23)
[2020-12-11] MEDS ORDERED: ALBUTEROL SO4 HFA INHALER IH PRN (10:37)
[2020-12-11] MEDS ORDERED: hydrOXYzine PAMOATE 25 MG CAPSULE (FP) PO PRN (10:37)
[2020-12-11] MEDS: MIRTAZAPINE 15 MG TABLET (FP) PO SCH (22:00)
[2020-12-11] MEDS: THIAMINE HCL 100 MG TABLET (FP) PO SCH (22:02)
[2020-12-11] MEDS: MELATONIN 5 MG TABLETS PO SCH (22:02)
[2020-12-12] MEDS ORDERED: LORazepam 0.5 MG TABLET PO ONE (05:00)
[2020-12-12] MEDS ORDERED: METHADONE HCL 5 MG TABLET (FOR DETOX USE ONLY) PO ONE (06:00)
[2020-12-12] MEDS: amLODIPine BESYLATE 5 MG TABLET (FP) PO SCH (09:19)
[2020-12-12] MEDS: PRENATAL VITAMINS W/ FOLIC ACID TABLET (FP) PO SCH (09:19)
[2020-12-12] MEDS: FLUoxetine HCL 20 MG CAPSULE PO SCH (09:19)
[2020-12-12] MEDS: BACITRACIN 0.9 GM PACKET TP SCH (09:19)
[2020-12-12] MEDS: NICOTINE 21 MG/24 HOURS TOPICAL PATCH TD SCH (09:20)
[2020-12-12] MEDS: MIRTAZAPINE 15 MG TABLET (FP) PO SCH (22:26)
[2020-12-12] MEDS: MELATONIN 5 MG TABLETS PO SCH (22:27)
[2020-12-12] MEDS: THIAMINE HCL 100 MG TABLET (FP) PO SCH (22:27)
[2020-12-13 08:47] VITALS: BP 117/77; PULSE 91; TEMP 96.8
[2020-12-13] MEDS: NICOTINE 21 MG/24 HOURS TOPICAL PATCH TD SCH (09:02)
[2020-12-13] MEDS: FLUoxetine HCL 20 MG CAPSULE PO SCH (09:02)
[2020-12-13] MEDS: BACITRACIN 0.9 GM PACKET TP SCH (09:02)
[2020-12-13] MEDS: amLODIPine BESYLATE 5 MG TABLET (FP) PO SCH (09:02)
[2020-12-13] MEDS: PRENATAL VITAMINS W/ FOLIC ACID TABLET (FP) PO SCH (09:03)
== END 2020-12-13 09:19 | disposition other institution (70) | DRG 773 ==
LOC: YASAS 13:36 → Y3N 16:32
PROVIDERS: ADMIT Allergy & Immunology; ATTEND Allergy & Immunology
PROC: HZ2ZZZZ Detoxification Services for Substance Abuse Treatment (ICD-10-PCS; principal; 2020-12-07)
DX: F11.23 Opioid dependence with withdrawal (principal); F10.230 Alcohol dependence with withdrawal, uncomplicated; F14.20 Cocaine dependence, uncomplicated; F17.210 Nicotine dependence, cigarettes, uncomplicated; F19.280 Other psychoactive substance dependence with psychoactive substance-induced anxiety disorder; F19.282 Other psychoactive substance dependence with psychoactive substance-induced sleep disorder; F19.24 Other psychoactive substance dependence with psychoactive substance-induced mood disorder; F32.9 Major depressive disorder, single episode, unspecified; E88.09 Other disorders of plasma-protein metabolism, not elsewhere classified; A53.0 Latent syphilis, unspecified as early or late; J45.909 Unspecified asthma, uncomplicated; G47.00 Insomnia, unspecified; G40.909 Epilepsy, unspecified, not intractable, without status epilepticus; B18.2 Chronic viral hepatitis C; M17.11 Unilateral primary osteoarthritis, right knee; M54.5 Low back pain; G89.29 Other chronic pain; R63.4 Abnormal weight loss; Z68.24 Body mass index [BMI] 24.0-24.9, adult; Z86.11 Personal history of tuberculosis; Z98.890 Other specified postprocedural states; Z91.19 Patient's noncompliance with other medical treatment and regimen; Z59.0 Homelessness; Z56.0 Unemployment, unspecified
CPT/HCPCS: 36415; 80053; 85027; 86593; 86780; C9803; G0008; J0735; Q2036; U0003

== ENCOUNTER 2021-01-09 15:32 | Inpatient (IN) | payer OTHER ==
[2021-01-09 16:30] VITALS: BMI 25.5
[2021-01-09] MEDS ORDERED: LOPERAMIDE HCL 2 MG CAPSULE PO PRN (17:38)
[2021-01-09] MEDS ORDERED: MAGNESIUM HYDROX 2400MG/30ML ORAL SUSPENSION 30 ML CUP PO PRN (17:38)
[2021-01-09] MEDS ORDERED: NICOTINE POLACRILEX 2 MG GUM BC PRN (17:38)
[2021-01-09] MEDS ORDERED: MAGNESIUM CITRATE 300 ML BOTTLE PO PRN (17:38)
[2021-01-09] MEDS ORDERED: IBUPROFEN 400 MG TABLET (FP) PO PRN (17:38)
[2021-01-09] MEDS ORDERED: MAG HYDROX/AL HYDROX/SIMETH 30 ML UNIT-DOSE CUP PO PRN (17:38)
[2021-01-09] MEDS ORDERED: P-EPHED 60MG/TRIPROLIDI 2.5MG TABLET PO PRN (17:38)
[2021-01-09] MEDS ORDERED: guaiFENesin 200 MG/10 ML 10 ML UNIT-DOSE CUPS PO PRN (17:38)
[2021-01-09] MEDS ORDERED: MENTHOL/PHENOL 1 EACH UD MM PRN (17:38)
[2021-01-09] MEDS ORDERED: cloNIDine HCL 0.1 MG TABLET PO PRN (17:42)
[2021-01-09] MEDS: MELATONIN 5 MG TABLETS PO SCH (21:16)
[2021-01-09] MEDS: THIAMINE HCL 100 MG TABLET (FP) PO SCH (21:16)
[2021-01-10] MEDS: PRENATAL VITAMINS W/ FOLIC ACID TABLET (FP) PO SCH (09:49)
[2021-01-10] MEDS: NICOTINE 14 MG/24 HOURS TOPICAL PATCH TD SCH (09:50)
[2021-01-10 13:45] LABS: URINE APPEARANCE CLEAR; URINE BILIRUBIN NEGATIVE (NEGATIVE); URINE COLOR YELLOW; URINE GLUCOSE (UA) NEGATIVE (NEGATIVE); URINE KETONE NEGATIVE (NEGATIVE); URINE LEUK ESTERASE NEGATIVE (NEGATIVE); URINE NITRITE NEGATIVE (NEGATIVE); URINE PROTEIN NEGATIVE (NEGATIVE)
[2021-01-10] MEDS: FLUoxetine HCL 20 MG CAPSULE PO SCH (15:59)
[2021-01-10] MEDS: MELATONIN 5 MG TABLETS PO SCH (21:37)
[2021-01-10] MEDS: THIAMINE HCL 100 MG TABLET (FP) PO SCH (21:37)
[2021-01-10] MEDS: MIRTAZAPINE 15 MG TABLET (FP) PO SCH (21:38)
[2021-01-11] MEDS: PRENATAL VITAMINS W/ FOLIC ACID TABLET (FP) PO SCH (10:01)
[2021-01-11] MEDS: NICOTINE 14 MG/24 HOURS TOPICAL PATCH TD SCH (10:01)
[2021-01-11] MEDS: FLUoxetine HCL 20 MG CAPSULE PO SCH (10:01)
[2021-01-11] MEDS: hydrOXYzine PAMOATE 25 MG CAPSULE (FP) PO PRN (10:02)
[2021-01-11] MEDS: MELATONIN 5 MG TABLETS PO SCH (21:04)
[2021-01-11] MEDS: MIRTAZAPINE 15 MG TABLET (FP) PO SCH (21:05)
[2021-01-11] MEDS: THIAMINE HCL 100 MG TABLET (FP) PO SCH (21:05)
[2021-01-12] MEDS: FLUoxetine HCL 20 MG CAPSULE PO SCH (10:00)
[2021-01-12] MEDS: BUPRENORPHINE/NALOXONE 4 MG/1 MG FILM PACKET SL SCH ×2 (10:00→21:58)
[2021-01-12] MEDS: PRENATAL VITAMINS W/ FOLIC ACID TABLET (FP) PO SCH (10:00)
[2021-01-12] MEDS: hydrOXYzine PAMOATE 25 MG CAPSULE (FP) PO PRN (10:00)
[2021-01-12] MEDS: NICOTINE 14 MG/24 HOURS TOPICAL PATCH TD SCH (10:02)
[2021-01-12] MEDS: THIAMINE HCL 100 MG TABLET (FP) PO SCH (21:57)
[2021-01-12] MEDS: MELATONIN 5 MG TABLETS PO SCH (21:57)
[2021-01-12] MEDS: MIRTAZAPINE 15 MG TABLET (FP) PO SCH (21:57)
[2021-01-13] MEDS: BUPRENORPHINE/NALOXONE 4 MG/1 MG FILM PACKET SL SCH ×2 (10:03→22:01)
[2021-01-13] MEDS: FLUoxetine HCL 20 MG CAPSULE PO SCH (10:03)
[2021-01-13] MEDS: PRENATAL VITAMINS W/ FOLIC ACID TABLET (FP) PO SCH (10:03)
[2021-01-13] MEDS: NICOTINE 14 MG/24 HOURS TOPICAL PATCH TD SCH (10:04)
[2021-01-13] MEDS: THIAMINE HCL 100 MG TABLET (FP) PO SCH (21:59)
[2021-01-13] MEDS: MIRTAZAPINE 15 MG TABLET (FP) PO SCH (22:00)
[2021-01-13] MEDS: MELATONIN 5 MG TABLETS PO SCH (22:00)
[2021-01-14] MEDS: FLUoxetine HCL 20 MG CAPSULE PO SCH (09:51)
[2021-01-14] MEDS: PRENATAL VITAMINS W/ FOLIC ACID TABLET (FP) PO SCH (09:51)
[2021-01-14] MEDS: BUPRENORPHINE/NALOXONE 4 MG/1 MG FILM PACKET SL SCH ×2 (09:52→21:55)
[2021-01-14] MEDS: NICOTINE 14 MG/24 HOURS TOPICAL PATCH TD SCH (09:52)
[2021-01-14] MEDS: MELATONIN 5 MG TABLETS PO SCH (21:54)
[2021-01-14] MEDS: THIAMINE HCL 100 MG TABLET (FP) PO SCH (21:54)
[2021-01-14] MEDS: MIRTAZAPINE 15 MG TABLET (FP) PO SCH (21:54)
[2021-01-15] MEDS: FLUoxetine HCL 20 MG CAPSULE PO SCH (09:47)
[2021-01-15] MEDS: NICOTINE 14 MG/24 HOURS TOPICAL PATCH TD SCH (09:47)
[2021-01-15] MEDS: PRENATAL VITAMINS W/ FOLIC ACID TABLET (FP) PO SCH (09:47)
[2021-01-15] MEDS: BUPRENORPHINE/NALOXONE 4 MG/1 MG FILM PACKET SL SCH (09:48)
[2021-01-15] MEDS: MIRTAZAPINE 15 MG TABLET (FP) PO SCH (21:23)
[2021-01-15] MEDS: THIAMINE HCL 100 MG TABLET (FP) PO SCH (21:24)
[2021-01-15] MEDS: MELATONIN 5 MG TABLETS PO SCH (21:24)
[2021-01-16] MEDS: FLUoxetine HCL 20 MG CAPSULE PO SCH (09:51)
[2021-01-16] MEDS: NICOTINE 14 MG/24 HOURS TOPICAL PATCH TD SCH (09:51)
[2021-01-16] MEDS: PRENATAL VITAMINS W/ FOLIC ACID TABLET (FP) PO SCH (09:51)
[2021-01-16] MEDS: MELATONIN 5 MG TABLETS PO SCH (21:23)
[2021-01-16] MEDS: MIRTAZAPINE 15 MG TABLET (FP) PO SCH (21:24)
[2021-01-16] MEDS: THIAMINE HCL 100 MG TABLET (FP) PO SCH (21:24)
[2021-01-17] MEDS ORDERED: MASKS NR ONE (08:34)
[2021-01-17] MEDS: PRENATAL VITAMINS W/ FOLIC ACID TABLET (FP) PO SCH (09:27)
[2021-01-17] MEDS: FLUoxetine HCL 20 MG CAPSULE PO SCH (09:27)
[2021-01-17] MEDS: NICOTINE 14 MG/24 HOURS TOPICAL PATCH TD SCH (09:27)
[2021-01-17] MEDS: MELATONIN 5 MG TABLETS PO SCH (21:03)
[2021-01-17] MEDS: THIAMINE HCL 100 MG TABLET (FP) PO SCH (21:03)
[2021-01-17] MEDS: MIRTAZAPINE 15 MG TABLET (FP) PO SCH (21:03)
[2021-01-18] MEDS: PRENATAL VITAMINS W/ FOLIC ACID TABLET (FP) PO SCH (09:54)
[2021-01-18] MEDS: NICOTINE 14 MG/24 HOURS TOPICAL PATCH TD SCH (09:54)
[2021-01-18] MEDS: FLUoxetine HCL 20 MG CAPSULE PO SCH (09:54)
[2021-01-18] MEDS: MELATONIN 5 MG TABLETS PO SCH (21:05)
[2021-01-18] MEDS: THIAMINE HCL 100 MG TABLET (FP) PO SCH (21:06)
[2021-01-18] MEDS: MIRTAZAPINE 15 MG TABLET (FP) PO SCH (21:06)
[2021-01-19] MEDS: FLUoxetine HCL 20 MG CAPSULE PO SCH (09:42)
[2021-01-19] MEDS: NICOTINE 14 MG/24 HOURS TOPICAL PATCH TD SCH (09:42)
[2021-01-19] MEDS: PRENATAL VITAMINS W/ FOLIC ACID TABLET (FP) PO SCH (09:42)
[2021-01-19] MEDS: MIRTAZAPINE 15 MG TABLET (FP) PO SCH (21:09)
[2021-01-19] MEDS: THIAMINE HCL 100 MG TABLET (FP) PO SCH (21:10)
[2021-01-19] MEDS: MELATONIN 5 MG TABLETS PO SCH (21:10)
[2021-01-20] MEDS: PRENATAL VITAMINS W/ FOLIC ACID TABLET (FP) PO SCH (09:41)
[2021-01-20] MEDS: FLUoxetine HCL 20 MG CAPSULE PO SCH (09:41)
[2021-01-20] MEDS: NICOTINE 14 MG/24 HOURS TOPICAL PATCH TD SCH (09:41)
[2021-01-20] MEDS: THIAMINE HCL 100 MG TABLET (FP) PO SCH (21:35)
[2021-01-20] MEDS: MELATONIN 5 MG TABLETS PO SCH (21:35)
[2021-01-20] MEDS: MIRTAZAPINE 15 MG TABLET (FP) PO SCH (21:35)
[2021-01-21] MEDS: NICOTINE 14 MG/24 HOURS TOPICAL PATCH TD SCH (09:39)
[2021-01-21] MEDS: FLUoxetine HCL 20 MG CAPSULE PO SCH (09:40)
[2021-01-21] MEDS: PRENATAL VITAMINS W/ FOLIC ACID TABLET (FP) PO SCH (09:40)
[2021-01-21] MEDS: ACETAMINOPHEN 325 MG TABLET (FP) PO PRN (13:43)
[2021-01-21] MEDS: MIRTAZAPINE 15 MG TABLET (FP) PO SCH (21:05)
[2021-01-21] MEDS: MELATONIN 5 MG TABLETS PO SCH (21:05)
[2021-01-21] MEDS: THIAMINE HCL 100 MG TABLET (FP) PO SCH (21:06)
[2021-01-22] MEDS: FLUoxetine HCL 20 MG CAPSULE PO SCH (09:43)
[2021-01-22] MEDS: PRENATAL VITAMINS W/ FOLIC ACID TABLET (FP) PO SCH (09:43)
[2021-01-22] MEDS: NICOTINE 14 MG/24 HOURS TOPICAL PATCH TD SCH (09:43)
[2021-01-22] MEDS: MIRTAZAPINE 15 MG TABLET (FP) PO SCH (21:44)
[2021-01-22] MEDS: THIAMINE HCL 100 MG TABLET (FP) PO SCH (21:44)
[2021-01-22] MEDS: MELATONIN 5 MG TABLETS PO SCH (21:44)
[2021-01-23] MEDS: NICOTINE 14 MG/24 HOURS TOPICAL PATCH TD SCH (09:44)
[2021-01-23] MEDS: PRENATAL VITAMINS W/ FOLIC ACID TABLET (FP) PO SCH (09:44)
[2021-01-23] MEDS: FLUoxetine HCL 20 MG CAPSULE PO SCH (09:44)
[2021-01-23] MEDS: MIRTAZAPINE 15 MG TABLET (FP) PO SCH (21:03)
[2021-01-23] MEDS: MELATONIN 5 MG TABLETS PO SCH (21:03)
[2021-01-23] MEDS: THIAMINE HCL 100 MG TABLET (FP) PO SCH (21:03)
[2021-01-24] MEDS: FLUoxetine HCL 20 MG CAPSULE PO SCH (09:41)
[2021-01-24] MEDS: NICOTINE 14 MG/24 HOURS TOPICAL PATCH TD SCH (09:41)
[2021-01-24] MEDS: PRENATAL VITAMINS W/ FOLIC ACID TABLET (FP) PO SCH (09:41)
[2021-01-24] MEDS: ACETAMINOPHEN 325 MG TABLET (FP) PO PRN (13:58)
[2021-01-24] MEDS: THIAMINE HCL 100 MG TABLET (FP) PO SCH (21:38)
[2021-01-24] MEDS: MELATONIN 5 MG TABLETS PO SCH (21:38)
[2021-01-24] MEDS: MIRTAZAPINE 15 MG TABLET (FP) PO SCH (21:38)
[2021-01-25] MEDS: NICOTINE 14 MG/24 HOURS TOPICAL PATCH TD SCH (09:58)
[2021-01-25] MEDS: PRENATAL VITAMINS W/ FOLIC ACID TABLET (FP) PO SCH (09:58)
[2021-01-25] MEDS: FLUoxetine HCL 20 MG CAPSULE PO SCH (09:58)
[2021-01-25] MEDS: THIAMINE HCL 100 MG TABLET (FP) PO SCH (21:06)
[2021-01-25] MEDS: MELATONIN 5 MG TABLETS PO SCH (21:06)
[2021-01-25] MEDS: MIRTAZAPINE 15 MG TABLET (FP) PO SCH (21:06)
[2021-01-26] MEDS: FLUoxetine HCL 20 MG CAPSULE PO SCH (09:34)
[2021-01-26] MEDS: NICOTINE 14 MG/24 HOURS TOPICAL PATCH TD SCH (09:34)
[2021-01-26] MEDS: PRENATAL VITAMINS W/ FOLIC ACID TABLET (FP) PO SCH (09:34)
[2021-01-26] MEDS: MIRTAZAPINE 15 MG TABLET (FP) PO SCH (21:48)
[2021-01-26] MEDS: THIAMINE HCL 100 MG TABLET (FP) PO SCH (21:48)
[2021-01-26] MEDS: MELATONIN 5 MG TABLETS PO SCH (21:48)
[2021-01-27] MEDS: NICOTINE 14 MG/24 HOURS TOPICAL PATCH TD SCH (09:34)
[2021-01-27] MEDS: FLUoxetine HCL 20 MG CAPSULE PO SCH (09:34)
[2021-01-27] MEDS: PRENATAL VITAMINS W/ FOLIC ACID TABLET (FP) PO SCH (09:34)
[2021-01-27] MEDS: MIRTAZAPINE 15 MG TABLET (FP) PO SCH (21:01)
[2021-01-27] MEDS: THIAMINE HCL 100 MG TABLET (FP) PO SCH (21:02)
[2021-01-27] MEDS: MELATONIN 5 MG TABLETS PO SCH (21:02)
[2021-01-28] MEDS: FLUoxetine HCL 20 MG CAPSULE PO SCH (09:35)
[2021-01-28] MEDS: PRENATAL VITAMINS W/ FOLIC ACID TABLET (FP) PO SCH (09:35)
[2021-01-28] MEDS: NICOTINE 14 MG/24 HOURS TOPICAL PATCH TD SCH (09:35)
[2021-01-28] MEDS: MIRTAZAPINE 15 MG TABLET (FP) PO SCH (21:45)
[2021-01-28] MEDS: MELATONIN 5 MG TABLETS PO SCH (21:45)
[2021-01-28] MEDS: THIAMINE HCL 100 MG TABLET (FP) PO SCH (21:45)
[2021-01-29] MEDS: NICOTINE 14 MG/24 HOURS TOPICAL PATCH TD SCH (09:36)
[2021-01-29] MEDS: PRENATAL VITAMINS W/ FOLIC ACID TABLET (FP) PO SCH (09:36)
[2021-01-29] MEDS: FLUoxetine HCL 20 MG CAPSULE PO SCH (09:36)
[2021-01-29] MEDS: THIAMINE HCL 100 MG TABLET (FP) PO SCH (21:01)
[2021-01-29] MEDS: MIRTAZAPINE 15 MG TABLET (FP) PO SCH (21:01)
[2021-01-29] MEDS: MELATONIN 5 MG TABLETS PO SCH (21:01)
[2021-01-30] MEDS: FLUoxetine HCL 20 MG CAPSULE PO SCH (09:29)
[2021-01-30] MEDS: NICOTINE 14 MG/24 HOURS TOPICAL PATCH TD SCH (09:29)
[2021-01-30] MEDS: PRENATAL VITAMINS W/ FOLIC ACID TABLET (FP) PO SCH (09:29)
[2021-01-30] MEDS: MELATONIN 5 MG TABLETS PO SCH (21:35)
[2021-01-30] MEDS: MIRTAZAPINE 15 MG TABLET (FP) PO SCH (21:35)
[2021-01-30] MEDS: THIAMINE HCL 100 MG TABLET (FP) PO SCH (21:35)
[2021-01-31] MEDS: FLUoxetine HCL 20 MG CAPSULE PO SCH (09:32)
[2021-01-31] MEDS: NICOTINE 14 MG/24 HOURS TOPICAL PATCH TD SCH (09:32)
[2021-01-31] MEDS: PRENATAL VITAMINS W/ FOLIC ACID TABLET (FP) PO SCH (09:32)
[2021-01-31] MEDS: MIRTAZAPINE 15 MG TABLET (FP) PO SCH (21:07)
[2021-01-31] MEDS: MELATONIN 5 MG TABLETS PO SCH (21:07)
[2021-01-31] MEDS: THIAMINE HCL 100 MG TABLET (FP) PO SCH (21:07)
[2021-02-01] MEDS: NICOTINE 14 MG/24 HOURS TOPICAL PATCH TD SCH (09:49)
[2021-02-01] MEDS: PRENATAL VITAMINS W/ FOLIC ACID TABLET (FP) PO SCH (09:49)
[2021-02-01] MEDS: FLUoxetine HCL 20 MG CAPSULE PO SCH (09:51)
[2021-02-01] MEDS: MELATONIN 5 MG TABLETS PO SCH (21:37)
[2021-02-01] MEDS: THIAMINE HCL 100 MG TABLET (FP) PO SCH (21:37)
[2021-02-01] MEDS: MIRTAZAPINE 15 MG TABLET (FP) PO SCH (21:37)
[2021-02-02] MEDS: PRENATAL VITAMINS W/ FOLIC ACID TABLET (FP) PO SCH (09:49)
[2021-02-02] MEDS: NICOTINE 14 MG/24 HOURS TOPICAL PATCH TD SCH (09:49)
[2021-02-02] MEDS: FLUoxetine HCL 20 MG CAPSULE PO SCH (09:50)
[2021-02-02] MEDS: MELATONIN 5 MG TABLETS PO SCH (21:04)
[2021-02-02] MEDS: MIRTAZAPINE 15 MG TABLET (FP) PO SCH (21:04)
[2021-02-02] MEDS: THIAMINE HCL 100 MG TABLET (FP) PO SCH (21:04)
[2021-02-03] MEDS: PRENATAL VITAMINS W/ FOLIC ACID TABLET (FP) PO SCH (09:24)
[2021-02-03] MEDS: FLUoxetine HCL 20 MG CAPSULE PO SCH (09:24)
[2021-02-03] MEDS: NICOTINE 14 MG/24 HOURS TOPICAL PATCH TD SCH (09:24)
[2021-02-03] MEDS: THIAMINE HCL 100 MG TABLET (FP) PO SCH (21:35)
[2021-02-03] MEDS: MIRTAZAPINE 15 MG TABLET (FP) PO SCH (21:36)
[2021-02-03] MEDS: MELATONIN 5 MG TABLETS PO SCH (21:36)
[2021-02-04] MEDS: PRENATAL VITAMINS W/ FOLIC ACID TABLET (FP) PO SCH (09:37)
[2021-02-04] MEDS: FLUoxetine HCL 20 MG CAPSULE PO SCH (09:37)
[2021-02-04] MEDS: NICOTINE 14 MG/24 HOURS TOPICAL PATCH TD SCH (09:37)
[2021-02-04 20:36] VITALS: TEMP 98.1
[2021-02-04] MEDS: MELATONIN 5 MG TABLETS PO SCH (21:00)
[2021-02-04] MEDS: THIAMINE HCL 100 MG TABLET (FP) PO SCH (21:00)
[2021-02-04] MEDS: MIRTAZAPINE 15 MG TABLET (FP) PO SCH (21:00)
[2021-02-05 06:33] VITALS: BP 137/95; PULSE 75
[2021-02-05] MEDS: FLUoxetine HCL 20 MG CAPSULE PO SCH (09:00)
[2021-02-05] MEDS: PRENATAL VITAMINS W/ FOLIC ACID TABLET (FP) PO SCH (09:00)
[2021-02-05] MEDS: NICOTINE 14 MG/24 HOURS TOPICAL PATCH TD SCH (09:01)
== END 2021-02-05 10:00 | disposition home or self-care (01) | DRG 772 ==
LOC: YASAS 15:32 → Y3W 20:09
PROVIDERS: ADMIT Allergy & Immunology; ATTEND Allergy & Immunology
PROC: HZ42ZZZ Group Counseling for Substance Abuse Treatment, Cognitive-Behavioral (ICD-10-PCS; principal; 2021-01-09)
DX: F11.20 Opioid dependence, uncomplicated (principal); F13.20 Sedative, hypnotic or anxiolytic dependence, uncomplicated; F17.210 Nicotine dependence, cigarettes, uncomplicated; F19.282 Other psychoactive substance dependence with psychoactive substance-induced sleep disorder; F19.280 Other psychoactive substance dependence with psychoactive substance-induced anxiety disorder; F19.24 Other psychoactive substance dependence with psychoactive substance-induced mood disorder; F32.9 Major depressive disorder, single episode, unspecified; J45.20 Mild intermittent asthma, uncomplicated; B18.2 Chronic viral hepatitis C; M54.5 Low back pain; G89.29 Other chronic pain; Z86.11 Personal history of tuberculosis; Z86.19 Personal history of other infectious and parasitic diseases; Z59.0 Homelessness; Z56.0 Unemployment, unspecified
CPT/HCPCS: 81003; C9803; U0003